=== PATIENT | female | born 1935 ===

== ENCOUNTER 2018-08-03 13:45 | Emergency (ER) | payer OTHER ==
[~2018-08-03] VITALS: Ht 134.6 cm; Wt 57.6 kg
[2018-08-03] MEDS ORDERED: AMLODIPINE-OLM1 EAC3 (13:52)
[2018-08-03] MEDS ORDERED: RANITIDINE HCL150 M1 (13:52)
[2018-08-03] MEDS ORDERED: ASPIR 8181 MG (13:52)
[2018-08-03] MEDS ORDERED: MAXFE CAPLET1 EACH (13:52)
[2018-08-03] MEDS ORDERED: DONEPEZIL HCL23 MG (13:53)
== END 2018-08-03 18:43 | disposition home or self-care (01) ==
LOC: ER 13:45
DX: S40.021A Contusion of right upper arm, initial encounter (principal); M75.51 Bursitis of right shoulder; W06.XXXA Fall from bed, initial encounter; Y93.89 Activity, other specified; Y92.013 Bedroom of single-family (private) house as the place of occurrence of the external cause; Y99.8 Other external cause status